=== PATIENT | male | born 1965 | race Caucasian/White ===

== ENCOUNTER → 2024-02-08 10:35 | Outpatient (REF) | payer OTHER, SELFPAY | LOC: RAD 10:35 | PROVIDERS: ATTENDING PHYSICIAN Physician Assistant | DX: G89.29 Other chronic pain (principal); M54.50 Low back pain, unspecified | CPT/HCPCS: 72081 ==

== ENCOUNTER → 2024-07-25 09:38 | Outpatient (REF) | payer OTHER, SELFPAY | LOC: RAD 09:38 | PROVIDERS: ATTENDING PHYSICIAN Physician Assistant; FAMILY PHYSICIAN Physician Assistant; PRIMARYCARE PHYSICIAN Family Medicine | DX: M54.50 Low back pain, unspecified (principal) | CPT/HCPCS: 72110 ==

== ENCOUNTER 2024-08-08 06:17 | Outpatient (RCR) | payer OTHER, SELFPAY | END 2024-08-08 23:59 | disposition home or self-care (01) | LOC: RPT 06:17 | PROVIDERS: ATTENDING PHYSICIAN Physician Assistant | DX: M54.51 Vertebrogenic low back pain (principal); Z73.6 Limitation of activities due to disability | CPT/HCPCS: 97010; 97110; 97112; 97162 ==

== ENCOUNTER 2024-09-19 10:04 | Outpatient (RCR) | payer OTHER, SELFPAY | END 2024-09-19 23:59 | disposition home or self-care (01) | LOC: RPT 10:04 | PROVIDERS: ATTENDING PHYSICIAN Physician Assistant | DX: M54.51 Vertebrogenic low back pain (principal); Z73.6 Limitation of activities due to disability | CPT/HCPCS: 97110 ==

== ENCOUNTER 2025-01-11 09:33 | Emergency (ER) | payer OTHER, SELFPAY ==
[2025-01-11 09:34] VITALS: BP 160/75
--- NOTE | 2025-01-11 10:33 | ED.GENMED ---
History of Present Illness
General
Chief Complaint: Back Pain
Source: patient
Time Seen by Provider: 01/11/25 10:27
History of Present Illness
History of Present Illness:
59-year-old male with no significant past medical history presents to the emergency department for evaluation of left-sided lower back pain that began yesterday when he was lifting a box and pushing heavy piece of wood when he felt a
snapping/cracking sensation in his lower back and has had pain since. Patient has been taking ibuprofen with some relief but states still having the pain which is what prompted him to come to the ER. Notes that he has a history of similar which
required an x-ray last year and had been doing physical therapy as well. Patient denies any fevers or infectious symptoms, focal weakness or numbness or any other concerns.
Past History
Past History
ED Past Medical History: None
ED Past Surgical History: None
Social History
Tobacco: Non-smoker
Alcohol: None
Drug: None
Personal:
Living: with family
Review of Systems
Review of Systems
All Other Systems: ROS reviewed and negative except as documented in HPI and ROS
Phy Exam
Physical Exam
Physical Exam:
GENERAL: Alert , in no apparent distress but appears mildly uncomfortable with movements
EYE: clear conjunctiva b/l
NECK: Supple
ENT: o/p clr, mmm.
BACK: Normal range of motion, no focal tenderness, no midline bony tenderness, no rashes
NEUROLOGICAL: Alert and oriented, no focal neuro deficits. sensation grossly intact and equal to light touch bilateral lower extremities
SKIN: Warm and dry, skin intact.
MUSCULOSKELETAL: No edema, well perfused. EHL intact bilaterally
PSYCH: Normal and appropriate interaction.
Scores
Heart Failure Risk
Heart Failure Risk Score: Not Applicable
Heart Score for Chest Pain Patients
STEMI patient?: Not applicable
Withdrawal Assessment of Alcohol
Withdrawal Assessment Completed?: Not applicable
Course
Orders/Labs/Results
Orders:
Orders
01/11/25 09:36
EKG [Electrocardiogram (*1)] Urgent
Reason for Study: Bradycardia / Tachycardia
EKG- Treatment ONCE
01/11/25 10:27
CR Lumbar Spine Comp Min 4 Vw* Urgent
Comment:
Reason For Exam: low back pain
Vital Signs
Initial and Last Documented VS:
Initial Vital Signs
Temp Pulse Resp BP Pulse Ox
97.8 F 44 17 160/75 97
01/11/25 09:34 01/11/25 09:34 01/11/25 09:34 01/11/25 09:34 01/11/25 09:34
Last Documented Vital Signs
Temp Pulse Resp BP Pulse Ox
97.8 F 44 17 160/75 97
01/11/25 09:34 01/11/25 09:34 01/11/25 09:34 01/11/25 09:34 01/11/25 09:34
MDM/Problems Addressed
Differential Diagnosis Includes:
Lumbar strain, disc herniation, nerve impingement, no symptoms to suggest infectious etiologies, no symptoms to suggest neurogenic claudication, doubt renal/ureteral colic
MDM/Problems Addressed:
59-year-old male presenting to the emergency department for evaluation of lower back pain that began yesterday while lifting a heavier object. Patient had some relief with Motrin but symptoms persisted this morning. No fevers or infectious
symptoms. Exam seems to be most consistent with muscular etiology. Will obtain x-ray here for further evaluation. Continue treatment with anti-inflammatories. Will provide with muscle relaxer. Anticipate outpatient management continuing.
*Radiology
Radiology exam reviewed: preliminary read by ED provider (Degenerative changes, no fracture)
*Pulse Oximetry
Patient hypoxic: no
*Critical Care Note
Total Time (30-74mins, 75-104mins- exclusive of procedures): Not Applicable
Patient Management
Escalation/DeEscalation of care consider admission/obs:
X-ray is unremarkable for any acute pathology. This time I do think it is reasonable for patient to be discharged home and continue outpatient management. Aware of return precautions to the ER.
ED Attending Note
-
Portions of this chart may have been created with voice recognition software.� Occasional wrong word or��sound alike� substitutions may have occurred due to the inherent limitations of voice recognition software.
Discharge Plan
Departure
Patient Disposition: Home (Routine Discharge)
Date of Disposition: 01/11/25
Time of Disposition: 11:37
Patient with high blood pressure during this ER visit?: Yes
Discharge Problem:
Low back pain
Instructions: Low Back Pain (DC)
Prescriptions:
New
cyclobenzaprine 5 mg tablet
5 mg PO BID Qty: 10 0RF
Referrals:
Nahid Davenport MD [Active] - (Ortho - Please call for appointment as needed)
UNKNOWN - PT DOES,NOT KNOW [Family Provider] -
Interventions
Interventions:
*Risk Screen - Suicide Last Done: 01/11/25 09:35
*General Assessment Last Done: 01/11/25 09:35
*Neglect/Abuse Screening Last Done: 01/11/25 09:35
*ED- Fall Risk Assessment Last Done: 01/11/25 12:19
*ED COVID-19 Vaccine History Last Done: 01/11/25 09:35
*Nursing Disposition Last Done: 01/11/25 12:29
ED-Musculoskeletal Assessment Last Done: 01/11/25 12:24
Discharge Date and Time
Discharge Date/Time: 01/11/25 12:30
Print Language: BULGARIAN
== END 2025-01-11 12:30 | disposition home or self-care (01) ==
LOC: EMR 09:33
PROVIDERS: EMERGENCY PHYSICIAN Emergency Medicine
DX: M54.50 Low back pain, unspecified (principal)
CPT/HCPCS: 99284; 72110; 93005